=== PATIENT | female | born 1980 | race Caucasian/White ===

== ENCOUNTER 2017-07-19 05:25 | Day surgery (SDC) | payer BC ==
[2017-07-17 13:01] LABS: APPEARANCE,URINE SLIGHTLY-CLOUDY; BILIRUBIN,URINE NEGATIVE (NEGATIVE); COLOR,URINE YELLOW; GLUCOSE, URINE NEGATIVE (NEGATIVE); KETONES,URINE NEGATIVE (NEGATIVE); LEUKOCYTE ESTERASE,URINE LARGE (NEGATIVE); NITRITE,URINE NEGATIVE (NEGATIVE); PROTEIN,URINE NEGATIVE (NEGATIVE); URINE SPECIFIC GRAVITY 1.025; UROBILINOGEN,URINE NEGATIVE mg/dL (<2.0)
[2017-07-17 13:11] LABS: HEMATOCRIT 39.9 % (36.0-47.0); HEMOGLOBIN 14.1 g/dL (12.0-15.5); MEAN CORPUSCULAR HEMOGLOBIN 29.3 pg (27.0-33.4); MEAN CORPUSCULAR HGB CONC 35.3 g/dL (32.0-36.0); MEAN CORPUSCULAR VOLUME 83 fl (80-97); PLATELET COUNT 354 10^3/uL (150-450); RED BLOOD COUNT 4.82 10^6/uL (3.72-5.28); RED CELL DISTRIBUTION WIDTH 13.3 % (11.5-14.0); WHITE BLOOD COUNT 9.8 10^3/uL (4.0-10.5)
[2017-07-17 13:35] LABS: ANION GAP 14 (5-19); BLOOD UREA NITROGEN 9 mg/dL (7-20); CALCIUM 10.4 mg/dL (8.4-10.2); CARBON DIOXIDE 27 mmol/L (22-30); CHLORIDE 99 mmol/L (98-107); GLUCOSE 84 mg/dL (75-110); POTASSIUM 4.6 mmol/L (3.6-5.0); SODIUM 140.3 mmol/L (137-145)
[~2017-07-19 05:25] MED LIST: CLINDAMYCIN 600 MG/D5W RTU 600 MG/50 ML RTUPB IV PRN; LACTATED RINGERS 1000 ML IV PRN; LIDOCAINE 0.5% INJ-PF (5 MG/ML) 50 ML SDV SUBCUT PRN
[2017-07-19] MEDS ORDERED: FENTANYL CITRATE INJ/PF 100 MCG/2 ML AMPUL ONE ×2 (06:46→07:55)
[2017-07-19] MEDS ORDERED: MIDAZOLAM 2 MG/2 ML INJ ONE (06:47)
[2017-07-19] MEDS ORDERED: PROPOFOL INJ 200 MG/20 ML VIAL IV ONE (06:47)
[2017-07-19] MEDS ORDERED: LIDOCAINE 1% INJ-PF (10 MG/ML) 30 ML SDV ONE (07:03)
[2017-07-19] MEDS ORDERED: PROMETHAZINE HCL INJ 25 MG/1 ML VIAL IV PRN (07:40)
[2017-07-19] MEDS ORDERED: FENTANYL CITRATE INJ/PF 100 MCG/2 ML AMPUL IV PRN ×3 (07:40)
[2017-07-19] MEDS ORDERED: DIPHENHYDRAMINE HCL 50 MG/ML VIAL IV PRN (07:40)
[2017-07-19] MEDS ORDERED: OXYCODONE-ACETAMINOPHEN 5-325 MG TABLET PO PRN (08:01)
[2017-07-19] MEDS ORDERED: MORPHINE SULFATE 10 MG/ML INJ INJ PRN (08:01)
[2017-07-19] MEDS ORDERED: PROMETHAZINE HCL INJ 25 MG/1 ML VIAL IM PRN (08:04)
[2017-07-19] MEDS ORDERED: LORAZEPAM INJ 2 MG/1 ML VIAL ONE (08:11)
--- NOTE | 2017-07-19 08:35 | OPERATIVE REPORT E ---
Operative Report NAME: KASSANDRA ARRIOLA : 1980 AGE: 36Y DATE OF SURGERY: 07/19/2017 ROOM: PREOPERATIVE DIAGNOSIS: Menorrhagia. POSTOPERATIVE DIAGNOSIS: Menorrhagia. PROCEDURE: Hysteroscopy with Novasure ablation. SURGEON: MARYSE GOODMAN M.D. COMPLICATIONS: None. ANESTHESIA: General endotracheal. FINDINGS: Normal endometrial cavity. No fibroids or polyps appreciated. EUA demonstrated no endopelvic masses. Bladder was left undrained. INDICATIONS FOR PROCEDURE: The patient was unresponsive to usual outpatient management for a heavy abnormal bleeding, wearing a pad all the time. Outpatient biopsy was benign. Pap smear was normal. Patient of Dr. Kwok. The usual risks of bleeding, infection, anesthesia, and damage to organs and tissues were discussed and the patient understood. The patient desired a significant bleeding controlled with Novasure, understanding the risk of failure of approximately 10%. DESCRIPTION OF PROCEDURE: The patient was taken to the operating room and placed in the modified lithotomy position. After adequate anesthesia ascertained, prepped and draped in the usual manner for a *------*. DICTATING PHYSICIAN: MARYSE GOODMAN M.D. [id number] PHY#: [id number] ID: [id number] JOB#: [id number] ACCT: [id number] cc:MARYSE GOODMAN M.D. >
[2017-07-19] MEDS ORDERED: IBUPROFEN 800 MG TABLET ONE (10:36)
[2017-07-19] MEDS ORDERED: SUCCINYLCHOLINE CHLORIDE INJ 200 MG/10 ML VIAL ONE (10:56)
[2017-07-19] MEDS ORDERED: KETOROLAC TROMETHAMINE 60 MG/2 ML SDV ONE (10:56)
[2017-07-19] MEDS ORDERED: ONDANSETRON HCL INJ/PF 4 MG/2 ML SDV ONE (10:56)
[2017-07-19] MEDS ORDERED: LIDOCAINE 2% INJ-PF (20 MG/ML) 2 ML AMPUL ONE (10:56)
[2017-07-19] MEDS ORDERED: DEXAMETHASONE SOD PHOSPHATE INJ 4 MG/1 ML VIAL ONE (10:56)
[2017-07-19] MEDS ORDERED: GLYCOPYRROLATE INJ 0.4 MG/2 ML VIAL ONE (10:56)
[2017-07-19 11:45] VITALS: BP 133/84
[2017-07-19] MEDS ORDERED: IBUPROFEN 800 MG TABLET PO SCH (14:00)
--- NOTE | 2017-07-26 14:30 | OPERATIVE REPORT E ---
Operative Report NAME: KASSANDRA ARRIOLA : 1980 AGE: 36Y DATE OF SURGERY: 07/19/2017 ROOM: ADDENDUM DESCRIPTION OF PROCEDURE: She was prepped and draped in the usual manner for a hysteroscopy. The patient was examined under anesthesia. Tenaculum placed at the anterior lip of the cervix after prepping the cervix. Bladder was left undrained and the cervix was methodically dilated to admit an operative hysteroscope. A normal appearing uterus was appreciated as described above. A Novasure device was placed after measurements were taken. This was deployed and device turned on. At completion of the cycle, uterine integrity was confirmed with hysteroscope. Patient was awakened and taken to recovery in stable condition after instruments were removed. Return to the office in 1 week. DICTATING PHYSICIAN: MARYSE GOODMAN M.D. [id number] PHY#: [id number] ID: [id number] JOB#: [id number] ACCT: [id number] cc:MARYSE GOODMAN M.D. >
== END 2017-07-19 11:25 | disposition home or self-care (01) ==
LOC: OROUT 05:25 → MERGE 07:15 → OROUT 11:25
PROVIDERS: ATTEND Specialist
PROC: 0U5B8ZZ Destruction of Endometrium, Via Natural or Artificial Opening Endoscopic (ICD-10-PCS; principal; 2017-07-19 07:15)
DX: N92.0 Excessive and frequent menstruation with regular cycle (principal); N94.6 Dysmenorrhea, unspecified; E66.9 Obesity, unspecified; Z88.0 Allergy status to penicillin; Z68.38 Body mass index [BMI] 38.0-38.9, adult
CPT/HCPCS: 86900; 86901; 36415; 86850; 85027; 81025; 80048; 81001; 58563; J2250; J1100; J1885; J3010; J2270; J2060; J0330; J2405; J2704; J3490; 952